=== PATIENT | male | born 1955 | race Caucasian/White ===

== ENCOUNTER 2017-12-10 15:47 | Emergency (ER) | payer OTHER ==
[~2017-12-10] VITALS: Ht 177.8 cm; Wt 116.9 kg
[~2017-12-10 15:47] MED LIST: Aspirin E.C. PO; GLIPIZIDE5 MG PO
[2017-12-10] MEDS ORDERED: VALIUM5 MG PO (16:16)
[2017-12-10] MEDS ORDERED: MOTRIN600 MG PO (16:16)
[2017-12-10] MEDS ORDERED: PERCOCET 10/1 TABLET PO (16:16)
[2017-12-10 17:16] VITALS: BP 155/90
== END 2017-12-10 17:17 | disposition home or self-care (01) ==
LOC: EME 15:47
DX: M54.41 Lumbago with sciatica, right side (principal); G89.29 Other chronic pain; W00.0XXA Fall on same level due to ice and snow, initial encounter; Z79.84 Long term (current) use of oral hypoglycemic drugs; Z79.82 Long term (current) use of aspirin
CPT/HCPCS: 99281; 99283; J1885

== ENCOUNTER → 2018-01-05 | Outpatient (CLI) | payer OTHER ==
[~2018-01-05] MED LIST changes: +MOTRIN600 MG PO; +PERCOCET 10/1 TABLET PO; +VALIUM5 MG PO
== END | disposition home or self-care (01) ==
LOC: CDC 08:42
DX: Z01.810 Encounter for preprocedural cardiovascular examination (principal); R94.31 Abnormal electrocardiogram [ECG] [EKG]; M54.16 Radiculopathy, lumbar region
CPT/HCPCS: 93000

== ENCOUNTER → 2018-07-22 | Outpatient (CLI) | payer OTHER | END | disposition home or self-care (01) | LOC: CDC 10:05 | DX: R94.31 Abnormal electrocardiogram [ECG] [EKG] (principal); M25.522 Pain in left elbow; M25.422 Effusion, left elbow | CPT/HCPCS: 93000 ==